=== PATIENT | male | born 1970 | race Caucasian/White ===

== ENCOUNTER 2017-07-19 19:36 | Inpatient (IN) | payer OTHER ==
[~2017-07-19] VITALS: Ht 175.3 cm; Wt 78.2 kg
--- NOTE | 2017-07-19 20:39 | NUR ---
pt biba to room for c/o abd pain. Pt A&Ox1 which is baseline per facility. Pt initially had c/o abd pain and then general pain. Pt unclear in complaints. Dr. Bravo at bedside.
[2017-07-19] MEDS ORDERED: IV NORMAL SALINE 1000 ML BAG IV ONE (20:45)
[2017-07-19 21:02] LABS: BASOPHILS % (AUTO) 0.4 % (0.0-2.0); EOSINOPHILS # (AUTO) 0.2 K/uL (0.0-0.7); EOSINOPHILS % (AUTO) 3.5 % (0.0-7.0); HEMATOCRIT 38.8 % (40-50); HEMOGLOBIN 12.7 G/DL (14.0-18.0); LYMPHOCYTES # (AUTO) 1.5 K/UL (0.8-4.8); LYMPHOCYTES % (AUTO) 32.4 % (20.5-51.5); MEAN CORPUSCULAR HGB CONC 33 g/dL (32.0-37.0); MEAN CORPUSCULAR VOLUME 88.6 FL (82.0-92.0); MONOCYTES # (AUTO) 0.4 K/UL (0.1-1.30); MONOCYTES % (AUTO) 7.7 % (0.0-11.0); NEUTROPHILS # (AUTO) 2.7 K/UL (1.8-8.9); PLATELET COUNT (AUTO) 183 K/UL (150-450); RED BLOOD CELL COUNT(AUTO) 4.38 MIL/UL (4.7-6.1); WHITE BLOOD COUNT (AUTO) 4.8 K/UL (4.0-11.2)
[2017-07-19 21:13] LABS: BILIRUBIN,DIRECT 0.1 mg/dL (0.0-0.2); BILIRUBIN,TOTAL 0.3 mg/dL (0.2-1.0); CREATININE 0.9 mg/dL (0.6-1.3); POTASSIUM 4.2 mmol/L (3.5-5.1); TOTAL PROTEIN, SERUM 7.3 g/dL (6.4-8.2)
--- NOTE | 2017-07-19 21:33 | NUR ---
Call placed to [facility] Nephrology, Dr. PEREZ will be paged.
[2017-07-19 21:42] LABS: *BILIRUBIN,URIN NEGATIVE (NEGATIVE); *BLOOD, URINE NEGATIVE (NEGATIVE); *CLARITY,URINE CLEAR (CLEAR); *COLOR,URINE YELLOW (YELLOW); *KETONES,URINE NEGATIVE (NEGATIVE); *PROTEIN,URINE NEGATIVE (NEGATIVE); *UROBILINOGEN,URINE 0.2 E.U./dl (NORMAL); LEUKOCYTE ESTERASE ,URINE NEGATIVE (NEGATIVE); NITRITE, URINE NEGATIVE (NEGATIVE); PH,URINE 5.5 (5.0-8.0); UGLUCOSE NEGATIVE (NEGATIVE)
[2017-07-19] MEDS ORDERED: ACET325T53 PO (21:44)
[2017-07-19] MEDS ORDERED: CYAN10009 PO (21:44)
[2017-07-19] MEDS ORDERED: RISP3TAB14 PO (21:44)
[2017-07-19] MEDS ORDERED: VENL75CA56 PO (21:44)
[2017-07-19] MEDS ORDERED: SENN-167 PO (21:44)
[2017-07-19] MEDS ORDERED: IBUP-1953 PO (21:44)
[2017-07-19] MEDS ORDERED: LORA1TAB PO (21:44)
[2017-07-19] MEDS ORDERED: THIA100T13 PO (21:44)
[2017-07-19] MEDS ORDERED: FOLI1TAB16 PO (21:44)
--- NOTE | 2017-07-19 21:46 | NUR ---
Report called to [facility]. Preparing to transfer pt to the floor
[2017-07-19 21:48] LABS: MUCUS,URINE MANY /LPF (0-FEW); WBC,URINE 0-3 /HPF (0-3)
[2017-07-19 22:40] VITALS: BP 132/76
--- NOTE | 2017-07-19 22:40 | NUR ---
RECEIVED PATIENT FROM ED VIA [employer]. PATIENT IS ALERT TO SELF ONLY. POOR HISTORIAN. WAS ABLE TO ESTABLISH CODE STATUS. IV HL ON THE LEFT AC PATENT AND INTACT. BELONGINGS LIST COMPLETED. PATIENT IS ABLE TO WALK BUT UNSTEADY. SAFETY INITIATED. SKIN ASSESSMENT DONE. NOTED SACRAL REDNESS AND OLD WOUND MARKINGS. INSTRUCTED TO USE THE CALL LIGHT WHEN IN NEED OF HELP. HE WAS ABLE TO RETURN DEMONSTRATION. FALL PRECAUTIONS. BED ALARM TURNED ON. WAITING ON ORDERS. WILL CONTINUE TO MONITOR.
[2017-07-20 04:00] VITALS: BP 103/67
--- NOTE | 2017-07-20 05:43 | NUR ---
no changes t/o shift. no acute distress noted. patient slept well t/o the night. no c/o pain. patient ambulated to the restroom once. safety and comfort measures maintained t/o shift. all needs met.
[2017-07-20 07:45] LABS: POTASSIUM 3.9 mmol/L (3.5-5.1)
[2017-07-20] MEDS ORDERED: IBUPROFEN 400 MG TABLET PO PRN (08:15)
[2017-07-20] MEDS ORDERED: ACETAMINOPHEN 325 MG TABLET PO PRN (08:15)
[2017-07-20] MEDS: CYANOCOBALAMIN 1,000 MCG TABLET PO SCH (08:37)
[2017-07-20] MEDS: FOLIC ACID 1 MG TABLET PO SCH (08:37)
[2017-07-20] MEDS: THIAMINE HCL 100 MG TABLET PO SCH (08:38)
[2017-07-20] MEDS: SENNOSIDES 1 TABLET PO SCH (08:38)
[2017-07-20 08:47] LABS: BASOPHILS % (AUTO) 0.6 % (0.0-2.0); EOSINOPHILS # (AUTO) 0.2 K/uL (0.0-0.7); EOSINOPHILS % (AUTO) 3.9 % (0.0-7.0); HEMOGLOBIN 12.3 g/dL (12.5-16.3); LYMPHOCYTES # (AUTO) 1.4 K/uL (20.0-40.0); LYMPHOCYTES % (AUTO) 31.1 % (20.5-51.5); MEAN CORPUSCULAR HEMOGLOBIN 30.2 uug (23.8-33.4); MEAN CORPUSCULAR HGB CONC 34 g/dL (32.5-36.3); MEAN CORPUSCULAR VOLUME 88.5 fL (73.0-96.2); MONOCYTES # (AUTO) 0.4 K/uL (2.0-10.0); MONOCYTES % (AUTO) 9.5 % (0.0-11.0); NEUTROPHILS # (AUTO) 2.5 K/uL (1.8-8.9); NEUTROPHILS % (AUTO) 54.9 % (38.5-71.5); PLATELET COUNT (AUTO) 148 K/uL (152-348); RED BLOOD CELL COUNT(AUTO) 4.07 MIL/uL (4.06-5.63); WHITE BLOOD COUNT (AUTO) 4.5 K/uL (3.6-10.2)
--- NOTE | 2017-07-20 08:51 | NUR ---
DR GUTHRIE HERE SEEN AND EXAMINED PATIENT WITH NEW ORDERS AND NOTED.
[2017-07-20] MEDS ORDERED: THIAMINE HCL 100 MG TABLET PO SCH (09:00)
[2017-07-20 11:03] VITALS: BP 101/55
[2017-07-20] MEDS: POTASSIUM CHLORIDE 10 MEQ in IV 1/2NS 1000 ML 1,000 ML IV PRN (11:16)
[2017-07-20] MEDS: VENLAFAXINE XR 75 MG CAP.SR.24H PO SCH (12:58)
[2017-07-20 15:38] VITALS: BP 101/62
[2017-07-20] MEDS: LORAZEPAM 1 MG TABLET PO SCH ×2 (16:21→21:00)
--- NOTE | 2017-07-20 16:30 | NUR ---
PATIENT IS GETTING AGITATED AND RESTLESS DUE ATIVAN GIVEN TO HIM ORALLY AT THIS TIME AND PATIENT HAS NO PRN MEDICATIONS TO CALM HIM DOWN SO I CALLED DR SCOTT AND LEFT HIM A MESSAGE SPOKE WITH FRANCE TO CALL US BACK WITH AN ORDER
--- NOTE | 2017-07-20 17:26 | NUR ---
MD HAS NOT CALLED BACK BUT PATIENT IS CALMER WITH THE ATIVAN GIVEN HE IS EATING HIS DINNER RESPONDED WHEN ASKED IF HE WANTED SOMETHING TO DRINK AND HE STATED MILK.GIVEN AND PATIENT TOLERATED WELL.
--- NOTE | 2017-07-20 19:30 | NUR ---
Pt in room alert awake and oriented to self and . No s/s of acute distress or increased weakness. Pt encouraged to use call light for assistance. Side rails up. HOB elevated 20 degrees. Denies any pain and unable to state discomfort. Continue to monitor. V/s are WNL.
[2017-07-20 20:00] VITALS: BP 111/75
--- NOTE | 2017-07-20 21:00 | NUR ---
Pt given unscheduled Ativan 1 mg PO due to previous missed doses. Noted and carried out.
[2017-07-21] MEDS: POTASSIUM CHLORIDE 10 MEQ in IV 1/2NS 1000 ML 1,000 ML IV PRN ×2 (00:45→19:41)
[2017-07-21] MEDS: PANTOPRAZOLE SODIUM 40 MG TABLET.DR PO SCH (06:00)
[2017-07-21] MEDS: CYANOCOBALAMIN 1,000 MCG TABLET PO SCH (09:00)
[2017-07-21] MEDS: SENNOSIDES 1 TABLET PO SCH (09:00)
[2017-07-21] MEDS: LORAZEPAM 1 MG TABLET PO SCH ×3 (09:00→17:15)
[2017-07-21] MEDS: FOLIC ACID 1 MG TABLET PO SCH (09:00)
[2017-07-21] MEDS: VENLAFAXINE XR 75 MG CAP.SR.24H PO SCH (09:00)
[2017-07-21] MEDS: THIAMINE HCL 100 MG TABLET PO SCH (09:00)
[2017-07-21 11:18] VITALS: BP 100/72
--- NOTE | 2017-07-21 13:40 | NUR ---
SBAR report received at bedside this morning while computer systems were down. Board updated. Pt assessed, no acute distress noted at this time, Pt. denies any c/o pain. Pt compliant with all routine morning medication administration. All personal items and call light within reach. Pt teaching to remind Pt to utilize call light for any ambulation needs such as BRP, Pt forgetful about using diaper. Will continue to monitor.
[2017-07-21 15:34] VITALS: BP 120/76
--- NOTE | 2017-07-21 18:50 | NUR ---
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 Pt sitting comfortably up in bed. No anxiety or pain noted at this time. All comfort and safety measures in place. Call light within reach and Pt reminded to use for toileting assistance. V/S remained stable throughout this shift. Will continue to monitor and endorse to mold shifter.
--- NOTE | 2017-07-21 19:30 | NUR ---
Pt in contact isolation d/t MRSA nares. No acute distress. Able to eat and drink without difficulty. No increased weakness at this time. Advised pt to request for help when needed. Denies any pain at this time. Continue to monitor. Pt to start on ointment for nares.
[2017-07-21 20:00] VITALS: BP 133/95
[2017-07-21] MEDS: MUPIROCIN 2% OINT 22 GM TUBE NS SCH (20:00)
--- NOTE | 2017-07-22 01:00 | NUR ---
Pt asleep in room with no increased weakness present. No acute distress or c/o abdominal pain. Continue to monitor.
[2017-07-22 05:32] VITALS: BP 99/70
--- NOTE | 2017-07-22 06:00 | NUR ---
Pt asleep in room. No c/o abdominal pain. No increased confusion or agitation noted. Pt made aware of temporary NPO diet for upcoming ultrasound. BP 99/70. Pt repositioned and voided 2x since 000. Continue to monitor.
[2017-07-22] MEDS: PANTOPRAZOLE SODIUM 40 MG TABLET.DR PO SCH (07:00)
[2017-07-22 07:36] LABS: BILIRUBIN,TOTAL 0.3 mg/dL (0.2-1.0); MAGNESIUM 1.8 mg/dL (1.8-2.4); PHOSPHOROUS 4.4 mg/dL (2.5-4.9); POTASSIUM 4.2 mmol/L (3.5-5.1); TOTAL PROTEIN, SERUM 7.4 g/dL (6.4-8.2)
[2017-07-22 08:08] LABS: BASOPHILS % (AUTO) 0.6 % (0.0-2.0); EOSINOPHILS # (AUTO) 0.2 K/uL (0.0-0.7); LYMPHOCYTES # (AUTO) 1.7 K/uL (20.0-40.0); MONOCYTES # (AUTO) 0.5 K/uL (2.0-10.0); PLATELET COUNT (AUTO) 150 K/uL (152-348)
[2017-07-22 08:14] LABS: EOSINOPHILS % (AUTO) 3.9 % (0.0-7.0); LYMPHOCYTES % (AUTO) 30.8 % (20.5-51.5); MEAN CORPUSCULAR HEMOGLOBIN 30.9 uug (23.8-33.4); MEAN CORPUSCULAR HGB CONC 35 g/dL (32.5-36.3); MEAN CORPUSCULAR VOLUME 87.3 fL (73.0-96.2); NEUTROPHILS % (AUTO) 54.7 % (38.5-71.5); RED BLOOD CELL COUNT(AUTO) 4.62 MIL/uL (4.06-5.63); WHITE BLOOD COUNT (AUTO) 5.4 K/uL (3.6-10.2)
[2017-07-22 08:16] LABS: HEMATOCRIT 40.4 % (36.7-47.1); HEMOGLOBIN 14.3 g/dL (12.5-16.3)
[2017-07-22] MEDS: MUPIROCIN 2% OINT 22 GM TUBE NS SCH ×2 (08:56→20:10)
[2017-07-22] MEDS: LORAZEPAM 1 MG TABLET PO SCH ×4 (09:00→16:42)
--- NOTE | 2017-07-22 09:24 | NUR ---
RECEIVED PATIENT ASLEEP WITH ONGOING IVF OF .45 NS + KCL 10 MEQ, INFUSING WELL OVER LEFT AC. NOT IN APPARENT DISTRESS. WAKES UP TO TOUCH AND NAME. FOR ABDOMINAL ULTRASOUND TODAY. MAINTAIN ON NPO UNTIL COMPLETION OF TEST.
[2017-07-22] MEDS: POTASSIUM CHLORIDE 10 MEQ in IV 1/2NS 1000 ML 1,000 ML IV PRN ×2 (09:37→23:49)
--- NOTE | 2017-07-22 10:32 | NUR ---
With family at bedside. Tolerated medications well. Still with periods of confusion. Oriented accordingly. Addendum: 07/22/17 at 1333 by GARLAND QUEZADA RN Charted for wrong patient.
[2017-07-22 11:07] VITALS: BP 95/54
--- NOTE | 2017-07-22 12:00 | NUR ---
Abdominal ultrasound done at bedside. Morning medications given. Tolerated well. Urine specimen collected and sent to lab.
[2017-07-22] MEDS: VENLAFAXINE XR 75 MG CAP.SR.24H PO SCH (12:59)
[2017-07-22] MEDS: FOLIC ACID 1 MG TABLET PO SCH (13:00)
[2017-07-22] MEDS: SENNOSIDES 1 TABLET PO SCH (13:00)
[2017-07-22] MEDS: THIAMINE HCL 100 MG TABLET PO SCH (13:00)
[2017-07-22] MEDS: CYANOCOBALAMIN 1,000 MCG TABLET PO SCH (13:01)
[2017-07-22 15:07] VITALS: BP 102/64
[2017-07-22 20:00] VITALS: BP 90/46
--- NOTE | 2017-07-22 20:28 | NUR ---
NSG:Received patient laying in bed.smiling.no c/o pain or discomfort this time. Pt in contact isolation d/t MRSA nares. No acute distress. Able to eat and drink without difficulty. No increased weakness at this time. instructed to call nurse for help when needed via call light. Denies any pain at this time. Continue to monitor. call light w/in reach.
[2017-07-22 21:00] VITALS: BP 99/56
--- NOTE | 2017-07-23 03:30 | NUR ---
nsg: Pt asleep in room with no weakness present. No acute distress or c/o abdominal pain. Continue to monitoring for safety.
[2017-07-23 05:04] VITALS: BP 106/60
[2017-07-23] MEDS: PANTOPRAZOLE SODIUM 40 MG TABLET.DR PO SCH (06:24)
--- NOTE | 2017-07-23 06:50 | NUR ---
NSG: Pt slept well through the night in room. No c/o abdominal pain. No increased confusion or agitation noted. assisted with adl's. Pt repositioned and voided yellow urine x3 through the night . ivf running well. Continue to monitor.
[2017-07-23] MEDS: MUPIROCIN 2% OINT 22 GM TUBE NS SCH (09:00)
[2017-07-23] MEDS: SENNOSIDES 1 TABLET PO SCH (09:40)
[2017-07-23] MEDS: FOLIC ACID 1 MG TABLET PO SCH (09:40)
[2017-07-23] MEDS: CYANOCOBALAMIN 1,000 MCG TABLET PO SCH (09:40)
[2017-07-23] MEDS: THIAMINE HCL 100 MG TABLET PO SCH (09:40)
[2017-07-23] MEDS: LORAZEPAM 1 MG TABLET PO SCH ×2 (09:40→15:19)
[2017-07-23] MEDS: VENLAFAXINE XR 75 MG CAP.SR.24H PO SCH (09:40)
[2017-07-23 11:02] VITALS: BP 97/54
[2017-07-23 15:03] VITALS: BP 113/68
--- NOTE | 2017-07-23 17:15 | NUR ---
IV D/C'D HOME INSTRUCTIONS REVIEWED SEVERAL TIMES. PT. STABLE AND HAPPY TO GO HOME.
== END 2017-07-23 17:15 | DRG 641 ==
LOC: ER 19:36 → DOU 22:23 → MED 23:08
PROVIDERS: ADMIT Internal Medicine Nephrology; ATTEND Internal Medicine
DX: E86.9 Volume depletion, unspecified (principal); F20.9 Schizophrenia, unspecified; F03.90 Unspecified dementia, unspecified severity, without behavioral disturbance, psychotic disturbance, mood disturbance, and anxiety; F17.210 Nicotine dependence, cigarettes, uncomplicated; R53.1 Weakness; Z79.1 Long term (current) use of non-steroidal anti-inflammatories (NSAID); Z79.899 Other long term (current) drug therapy
CPT/HCPCS: 36415; 76700; 83690; 83735; 84100; 85025; J3480; J3490; J7030

== ENCOUNTER 2017-07-24 17:44 | Inpatient (IN) | payer OTHER ==
[~2017-07-24] VITALS: Ht 177.8 cm; Wt 73.5 kg
[~2017-07-24 17:44] MED LIST: ACET325T53 PO; CYAN10009 PO; FOLI1TAB16 PO; IBUP-1953 PO; LORA1TAB PO; RISP3TAB14 PO; SENN-167 PO; THIA100T13 PO; VENL75CA56 PO
--- NOTE | 2017-07-24 19:30 | NUR ---
Ambulated to bathroom,voided freely with difficulty. Has steady gait. Urine specimen was sent to lab.
[2017-07-24] MEDS ORDERED: IV NORMAL SALINE 1000 ML BAG IV ONE ×2 (19:45→21:30)
--- NOTE | 2017-07-24 19:55 | NUR ---
Dr. Nash at bedside for pt evaluation.
[2017-07-24 20:05] LABS: BASOPHILS % (AUTO) 0.5 % (0.0-2.0); EOSINOPHILS # (AUTO) 0.2 K/uL (0.0-0.7); EOSINOPHILS % (AUTO) 3.1 % (0.0-7.0); HEMOGLOBIN 13.6 G/DL (14.0-18.0); LYMPHOCYTES # (AUTO) 1.2 K/UL (0.8-4.8); MEAN CORPUSCULAR HEMOGLOBIN 29.4 UUG (27.0-31.0); MEAN CORPUSCULAR HGB CONC 33 g/dL (32.0-37.0); MEAN CORPUSCULAR VOLUME 88.5 FL (82.0-92.0); MONOCYTES # (AUTO) 0.4 K/UL (0.1-1.30); MONOCYTES % (AUTO) 6.1 % (0.0-11.0); NEUTROPHILS % (AUTO) 70.3 % (38.5-71.5); PLATELET COUNT (AUTO) 174 K/UL (150-450); RED BLOOD CELL COUNT(AUTO) 4.64 MIL/UL (4.7-6.1); WHITE BLOOD COUNT (AUTO) 5.8 K/UL (4.0-11.2)
[2017-07-24 20:05] LABS: *BILIRUBIN,URIN NEGATIVE (NEGATIVE); *BLOOD, URINE NEGATIVE (NEGATIVE); *CLARITY,URINE SLIGHTLY CLOUDY (CLEAR); *COLOR,URINE YELLOW (YELLOW); *KETONES,URINE NEGATIVE (NEGATIVE); *PROTEIN,URINE 1+ (NEGATIVE); *UROBILINOGEN,URINE 0.2 E.U./dl (NORMAL); LEUKOCYTE ESTERASE ,URINE NEGATIVE (NEGATIVE); NITRITE, URINE NEGATIVE (NEGATIVE); PH,URINE 5.5 (5.0-8.0); UGLUCOSE NEGATIVE (NEGATIVE)
[2017-07-24 20:14] LABS: ALANINE AMINOTRANSFERASE 15 U/L (16-63); ALKALINE PHOSPHATASE 73 U/L (50-136); ASPARTATE AMINOTRANSFERASE 18 U/L (15-37); BILIRUBIN,DIRECT 0.1 mg/dL (0.0-0.2); BILIRUBIN,TOTAL 0.2 mg/dL (0.2-1.0); CARBON DIOXIDE 30 mmol/L (21-32); CHLORIDE 104 mmol/L (98-107); CREATININE 1.1 mg/dL (0.6-1.3); GLUCOSE 113 mg/dL (74-106); POTASSIUM 4.3 mmol/L (3.5-5.1); TOTAL PROTEIN, SERUM 7.5 g/dL (6.4-8.2); UREA NITROGEN, BLOOD 20 mg/dL (7-18)
--- NOTE | 2017-07-24 20:20 | NUR ---
Sanches cath inserted by Justino Flower LVN. Procedure well tolerated.
[2017-07-24 20:41] LABS: BACTERIA,URINE RARE /HPF (NONE SEEN); RBC,URINE 0-3 /HPF (0-3); SQUAMOUS EPITHELIAL CELL,UR FEW /HPF (NONE SEEN)
--- NOTE | 2017-07-24 21:25 | NUR ---
Call placed to [facility] Nephrology, Dr. Zarco will be paged.
[2017-07-24] MEDS ORDERED: GENTAMICIN SULFATE INJ 80 MG in IV DEXTROSE 5% 100 ML IV ONE (21:30)
[2017-07-24] MEDS ORDERED: CEFTAZIDIME 1 G in IV DEXTROSE 5% 50 ML IV ONE (21:30)
--- NOTE | 2017-07-24 22:32 | NUR ---
REPAGED ROLDAN JACKSON REQUESTED BY DR IBARRA
[2017-07-24] MEDS ORDERED: CEFTAZIDIME 1 G VIAL ONE (22:34)
[2017-07-24] MEDS ORDERED: GENTAMICIN SULFATE 80 MG/2 ML VIAL ONE (22:34)
--- NOTE | 2017-07-24 23:16 | NUR ---
TRANSFERED TO 2ND FLOOR VIA [facility]
--- NOTE | 2017-07-24 23:20 | NUR ---
PT RECEIVED FROM ED, VIA [employer]. A/OX1. CONFUSED, BUT ABLE TO MAKE NEEDS KNOWN. V/S STABLE. IN NO ACUTE DISTRESS. NO C/O PAIN AT THIS TIME. IV BOLUS INFUSING. DURON INTACT AND PATENT. ON RA, TOLERATING WELL. SAFETY MEASURES IMPLEMENTED. CALL LIGHT WITHIN REACH.
[2017-07-24] MEDS ORDERED: ONDANSETRON 4 MG/2 ML VIAL IV PRN (23:30)
[2017-07-25] VITALS: BP 122/80
[2017-07-25] MEDS: IV NS 1000 ML 1,000 ML IV PRN ×3 (01:30→21:44)
--- NOTE | 2017-07-25 01:30 | NUR ---
PT FLUID BOLUS COMPLETED. 1300 CC OF NS COMPLETED HERE ON MED SURG FLOOR. PT IN STABLE CONDITION. WILL CONT TO MONITOR.
[2017-07-25 06:00] VITALS: BP 123/75
--- NOTE | 2017-07-25 06:30 | NUR ---
END OF SHIFT NOTES. PT SLEPT WELL THROUGHOUT SHIFT. IN STABLE CONDITION. IVF INFUSING. DURON INTACT/PATENT. ON RA, TOLERATING WELL. ALL NEEDS ATTENDED. SAFETY MAINTAINED. CALL LIGHT WITHIN REACH.
[2017-07-25 06:54] LABS: POTASSIUM 3.8 mmol/L (3.5-5.1)
[2017-07-25 07:03] LABS: BASOPHILS % (AUTO) 0.6 % (0.0-2.0); EOSINOPHILS # (AUTO) 0.2 K/uL (0.0-0.7); EOSINOPHILS % (AUTO) 5.2 % (0.0-7.0); HEMATOCRIT 35.4 % (36.7-47.1); HEMOGLOBIN 12.2 g/dL (12.5-16.3); LYMPHOCYTES # (AUTO) 1.6 K/uL (20.0-40.0); LYMPHOCYTES % (AUTO) 38.5 % (20.5-51.5); MEAN CORPUSCULAR HEMOGLOBIN 30.3 uug (23.8-33.4); MEAN CORPUSCULAR HGB CONC 35 g/dL (32.5-36.3); MONOCYTES # (AUTO) 0.4 K/uL (2.0-10.0); MONOCYTES % (AUTO) 9.8 % (0.0-11.0); NEUTROPHILS # (AUTO) 1.9 K/uL (1.8-8.9); NEUTROPHILS % (AUTO) 45.9 % (38.5-71.5); PLATELET COUNT (AUTO) 124 K/uL (152-348); RED BLOOD CELL COUNT(AUTO) 4.02 MIL/uL (4.06-5.63); WHITE BLOOD COUNT (AUTO) 4.2 K/uL (3.6-10.2)
[2017-07-25] MEDS ORDERED: ACETAMINOPHEN 325 MG TABLET PO PRN (07:15)
[2017-07-25] MEDS ORDERED: IBUPROFEN 400 MG TABLET PO PRN (07:15)
[2017-07-25] MEDS: THIAMINE HCL 100 MG TABLET PO SCH (08:24)
[2017-07-25] MEDS: LORAZEPAM 1 MG TABLET PO SCH ×3 (08:24→17:43)
[2017-07-25] MEDS: CYANOCOBALAMIN 1,000 MCG TABLET PO SCH (08:24)
[2017-07-25] MEDS: SENNOSIDES 1 TABLET PO SCH (08:24)
[2017-07-25] MEDS: FOLIC ACID 1 MG TABLET PO SCH (08:24)
[2017-07-25] MEDS: risperiDONE 2 MG TABLET PO SCH ×2 (08:24→17:43)
[2017-07-25] MEDS: VENLAFAXINE XR 75 MG CAP.SR.24H PO SCH (11:04)
[2017-07-25] MEDS: CEFTRIAXONE 1 G in IV DEXTROSE 5% 50 ML IV SCH (11:04)
[2017-07-25 11:40] VITALS: BP 100/58
[2017-07-25 16:11] VITALS: BP 126/82
--- NOTE | 2017-07-25 17:55 | NUR ---
pt non compliant with evening medications, did not take metformin or seroquel, pt only took diabeta. Addendum: 07/25/17 at 1757 by SHIVA WARD RN entered on wrong patient. this pt compliant with all medications throughout shift
--- NOTE | 2017-07-25 19:30 | NUR ---
received to care, lying in bed, arousable, but minimally interactive, when engaged. IVF continue to infuse, to RFA. vital signs remain stable. fuentes catheter remains intact, and patent. pt is now resting, with his eyes closed. call light in reach. no distress noted. will continue to monitor closely.
[2017-07-25 20:00] VITALS: BP 126/80
--- NOTE | 2017-07-25 23:30 | NUR ---
pt was awake, around 2300. snack was given, and he went back to sleep.
[2017-07-26] MEDS: ACETAMINOPHEN 325 MG TABLET PO PRN ×2 (00:31→20:37)
[2017-07-26 05:01] VITALS: BP 101/65
--- NOTE | 2017-07-26 05:30 | NUR ---
pt slept well, throughout he night, with a few episodes of being awake. as of 529, he continues to sleep. fuentes catheter remains patent, draining adequate amounts of clear and stella urine. no distress noted.
[2017-07-26] MEDS: IV NS 1000 ML 1,000 ML IV PRN (06:57)
[2017-07-26] MEDS: CEFTRIAXONE 1 G in IV DEXTROSE 5% 50 ML IV SCH (08:56)
[2017-07-26] MEDS: LORAZEPAM 1 MG TABLET PO SCH ×3 (08:57→16:36)
[2017-07-26] MEDS: CYANOCOBALAMIN 1,000 MCG TABLET PO SCH (08:57)
[2017-07-26] MEDS: SENNOSIDES 1 TABLET PO SCH (08:57)
[2017-07-26] MEDS: FOLIC ACID 1 MG TABLET PO SCH (08:57)
[2017-07-26] MEDS: risperiDONE 2 MG TABLET PO SCH ×2 (08:57→16:36)
[2017-07-26] MEDS: THIAMINE HCL 100 MG TABLET PO SCH (08:57)
[2017-07-26] MEDS: VENLAFAXINE XR 75 MG CAP.SR.24H PO SCH (08:58)
[2017-07-26 11:53] VITALS: BP 100/65
[2017-07-26 15:45] VITALS: BP 109/74
--- NOTE | 2017-07-26 18:37 | NUR ---
PT AWAKE IN BED, WATCHING TV. NO CHANGE NOTED THROUGHOUT SHIFT, ALL SAFETY AND COMFORT MEASURES MAINTAINED. CALL LIGHT IN REACH
[2017-07-26 20:00] VITALS: BP 105/62
--- NOTE | 2017-07-26 20:00 | NUR ---
RECEIVED PATIENT AWAKE IN BED, WATCHING TV. PATIENT IS A/O X3. DENIES PAIN OR DISCOMFORT. NO RESP. DISTRESS NOTED. IVF INFUSING WELL TO RIGHT FA #20 GAUGE. F/C INTACT AND PATENT, DRAINING CLEAR, YELLOW URINE. VS WNL. CALL LIGHT IN REACH. ALL NEEDS ATTENDED. WILL CONTINUE TO MONITOR.
[2017-07-27] MEDS: IV NS 1000 ML 1,000 ML IV PRN ×2 (03:37→14:06)
--- NOTE | 2017-07-27 05:47 | NUR ---
PATIENT ASLEEP IN BED. EASILY AROUSABLE. SLEPT WELL THROUGHOUT THE NIGHT. IVF INFUSING WELL. CALL LIGHT IN REACH. ALL NEEDS ATTENDED. WILL CONTINUE TO MONITOR.
[2017-07-27 06:24] VITALS: BP 136/83
[2017-07-27] MEDS: CEFTRIAXONE 1 G in IV DEXTROSE 5% 50 ML IV SCH (08:42)
[2017-07-27] MEDS: THIAMINE HCL 100 MG TABLET PO SCH (08:42)
[2017-07-27] MEDS: CYANOCOBALAMIN 1,000 MCG TABLET PO SCH (08:43)
[2017-07-27] MEDS: VENLAFAXINE XR 75 MG CAP.SR.24H PO SCH (08:43)
[2017-07-27] MEDS: risperiDONE 2 MG TABLET PO SCH ×2 (08:43→16:59)
[2017-07-27] MEDS: LORAZEPAM 1 MG TABLET PO SCH ×3 (08:43→16:59)
[2017-07-27] MEDS: SENNOSIDES 1 TABLET PO SCH (08:43)
[2017-07-27] MEDS: FOLIC ACID 1 MG TABLET PO SCH (08:43)
[2017-07-27 11:55] VITALS: BP 89/58
--- NOTE | 2017-07-27 13:37 | NUR ---
PT BP 112/78. ATIVAN GIVEN
[2017-07-27 15:39] VITALS: BP 119/80
--- NOTE | 2017-07-27 20:00 | NUR ---
RECEIVED PATIENT AWAKE IN BED. A/O X3. IVF INFUSING WELL TO RIGHT FA #20 GAUGE. F/C INTACT AND DRAINING WELL TO GRAVITY. PATIENT DENIES ANY PAIN OR DISCOMFORT. NO RESP. DISTRESS NOTED. VS WNL. BED ALARM ON. CALL LIGHT IN REACH, ALL NEEDS ATTENDED. WILL CONTINUE TO MONITOR AND ASSESS.
[2017-07-27 20:14] VITALS: BP 110/78
[2017-07-27] MEDS ORDERED: TAMSULOSIN HCL 0.4 MG CAP.SR.24H PO SCH (21:00)
[2017-07-28] MEDS: IV NS 1000 ML 1,000 ML IV PRN (00:44)
[2017-07-28 04:31] VITALS: BP 134/85
--- NOTE | 2017-07-28 05:50 | NUR ---
PATIENT AWAKE IN BED. DENIES PAIN. NO RESP. DISTRESS NOTED. VS WNL. IVF INFUSING WELL. BED ALARM ON. CALL LIGHT IN REACH. ALL NEEDS ATTENDED, WILL CONTINUE TO MONITOR AND ASSESS.
[2017-07-28] MEDS ORDERED: FINA5TAB11 PO (07:56)
[2017-07-28] MEDS ORDERED: TAMS-3 PO (07:56)
[2017-07-28] MEDS ORDERED: risperiDONE 2 MG TABLET PO ONE (09:00)
[2017-07-28 11:05] VITALS: BP 114/75
--- NOTE | 2017-07-28 14:27 | NUR ---
0800. PATIENT AWAKE V.S.S. IN NO ACUTE RESPIRATORY DISTRESS. PATIENT SOMETIMES ACTS IF IN A CATATONIC STATE; NOT RESPONDING TO VERBAL STIMULII AT THAT TIME. AFTER 2-3 MINUTES RESPONDS AND REPLIED APPROPRIATELY. FEEDS SELF IF FOOD IS CUT UP AND SET UP FOR HIM. V.S.S. NO COMPLAINTS OF PAIN. BRITANY JAQUEZ R.N. 07-7P. 07/28/2017. [address] [place] [address]/[facility]. 1000. SITTING UP IN BED IN NO DISTRESS. WATCHING T.V. SILENT UNLESS SPOKEN TO. APPEARS COMFORTABLE. BRITANY JAQUEZ R.N. 07-7P. 07/28/2017. [address] [place] [address]/[facility]. 1200. NO CHANGE. MEAL CUT UP AND PATIENT EATING SLOWLY. BRITANY JAQUEZ R.N. 07-7P. 07/28/2017. [address] [place] [address]/[facility]. 1400. PATIENT SLEEPING. I.V. PATENT AND CONTINUES TO INFUSE 0.9 N/S AT 100ML/HR. BRITANY JAQUEZ R.N. 07-7P. 07/28/2017. [address] [place] [address]/[facility].
[2017-07-28 15:00] VITALS: BP 105/72
== END 2017-07-28 17:30 | DRG 872 ==
LOC: ER 17:45 → MED 23:11
PROVIDERS: ADMIT Internal Medicine Nephrology; ATTEND Internal Medicine
DX: A41.9 Sepsis, unspecified organism (principal); F20.2 Catatonic schizophrenia; N39.0 Urinary tract infection, site not specified; R33.9 Retention of urine, unspecified; R80.9 Proteinuria, unspecified; Z79.899 Other long term (current) drug therapy; F39 Unspecified mood [affective] disorder
CPT/HCPCS: 36415; 70030-TC; 71010; 76770; 83605; 84443; 85025; 85730; 87040; 87086; 93005; A4663; J0696; J0713; J1580; J7030; J7040; J7060

== ENCOUNTER 2017-09-20 12:56 | Emergency (ER) | payer OTHER ==
[~2017-09-20] VITALS: Ht 175.3 cm; Wt 72.6 kg
[~2017-09-20 12:56] MED LIST changes: +FINA5TAB11 PO; +TAMS-3 PO
[2017-09-20] MEDS ORDERED: [UNRECOGNIZED DRUG - CODE] PO (13:10)
[2017-09-20] MEDS ORDERED: THIA100T70 PO (13:10)
[2017-09-20] MEDS ORDERED: IV NORMAL SALINE 1000 ML BAG IV ONE (13:15)
[2017-09-20 13:21] LABS: *BILIRUBIN,URIN NEGATIVE (NEGATIVE); *BLOOD, URINE NEGATIVE (NEGATIVE); *CLARITY,URINE CLEAR (CLEAR); *COLOR,URINE LIGHT YELLOW (YELLOW); *KETONES,URINE NEGATIVE (NEGATIVE); *PROTEIN,URINE NEGATIVE (NEGATIVE); *UROBILINOGEN,URINE 0.2 E.U./dl (NORMAL); LEUKOCYTE ESTERASE ,URINE NEGATIVE (NEGATIVE); NITRITE, URINE NEGATIVE (NEGATIVE); PH,URINE 7.5 (5.0-8.0); UGLUCOSE NEGATIVE (NEGATIVE)
[2017-09-20 13:29] LABS: BACTERIA,URINE NONE SEEN /HPF (NONE SEEN); RBC,URINE 0-3 /HPF (0-3); SQUAMOUS EPITHELIAL CELL,UR FEW /HPF (NONE SEEN); WBC,URINE 0-3 /HPF (0-3)
[2017-09-20 13:39] LABS: BASOPHILS % (AUTO) 0.5 % (0.0-2.0); EOSINOPHILS # (AUTO) 0.2 K/uL (0.0-0.7); EOSINOPHILS % (AUTO) 3.1 % (0.0-7.0); HEMATOCRIT 35.3 % (36.7-47.1); HEMOGLOBIN 12.1 g/dL (12.5-16.3); LYMPHOCYTES # (AUTO) 1.5 K/uL (20.0-40.0); LYMPHOCYTES % (AUTO) 27.8 % (20.5-51.5); MEAN CORPUSCULAR HEMOGLOBIN 29.7 uug (23.8-33.4); MEAN CORPUSCULAR HGB CONC 34 g/dL (32.5-36.3); MEAN CORPUSCULAR VOLUME 86.7 fL (73.0-96.2); MONOCYTES # (AUTO) 0.5 K/uL (2.0-10.0); MONOCYTES % (AUTO) 9.5 % (0.0-11.0); NEUTROPHILS # (AUTO) 3.1 K/uL (1.8-8.9); NEUTROPHILS % (AUTO) 59.1 % (38.5-71.5); PLATELET COUNT (AUTO) 152 K/uL (152-348); RED BLOOD CELL COUNT(AUTO) 4.07 MIL/uL (4.06-5.63); WHITE BLOOD COUNT (AUTO) 5.2 K/uL (3.6-10.2)
[2017-09-20 13:49] LABS: CREATININE 0.8 mg/dL (0.6-1.3); POTASSIUM 4.3 mmol/L (3.5-5.1)
[2017-09-20 13:55] LABS: BILIRUBIN,DIRECT 0.1 mg/dL (0.0-0.2); BILIRUBIN,TOTAL 0.3 mg/dL (0.2-1.0); TOTAL PROTEIN, SERUM 7.5 g/dL (6.4-8.2)
--- NOTE | 2017-09-20 14:35 | NUR ---
REILLY SPOKE TO PT'S PMD, DR MEANS. PER PMD PT WILL GO BACK TO [facility].
--- NOTE | 2017-09-20 14:41 | NUR ---
PLACED A CALL TO [facility] FOR PT TRANSFER. ETA 1 1/2 HOURS. PT IS RESTING IN BED W/ BOTH EYES CLOSED.
--- NOTE | 2017-09-20 16:29 | NUR ---
Patient is resting comfortably in bed with eyes closed
--- NOTE | 2017-09-20 17:10 | NUR ---
REPORT PROVIDED FOR EMT'S. PT LEFT ER IN STABLES CONDITION VIA [facility]. ALL BELONGINGS SENT W/ PT.
[2017-09-20 17:13] VITALS: BP 120/82
== END 2017-09-20 17:27 | disposition home or self-care (01) ==
LOC: ER 12:58
DX: Z00.00 Encounter for general adult medical examination without abnormal findings (principal); R00.1 Bradycardia, unspecified
CPT/HCPCS: 36415; 70030-TC; 71010; 83605; 83690; 85025; 85730; 87040; 87086; 93005; A4663; C1758; J7030

== ENCOUNTER 2018-01-16 17:27 | Emergency (ER) | payer OTHER ==
[~2018-01-16] VITALS: Ht 175.3 cm; Wt 72.6 kg
[~2018-01-16 17:27] MED LIST changes: -ACET325T53 PO; -CYAN10009 PO; +THIA100T70 PO; +[UNRECOGNIZED DRUG - CODE] PO
[2018-01-16] MEDS ORDERED: [UNRECOGNIZED DRUG - CODE] PO (17:50)
[2018-01-16 18:10] LABS: BASOPHILS % (AUTO) 0.7 % (0.0-2.0); EOSINOPHILS # (AUTO) 0.2 K/uL (0.0-0.7); EOSINOPHILS % (AUTO) 2.8 % (0.0-7.0); HEMOGLOBIN 12.8 g/dL (12.5-16.3); LYMPHOCYTES # (AUTO) 1.8 K/uL (20.0-40.0); LYMPHOCYTES % (AUTO) 33.9 % (20.5-51.5); MEAN CORPUSCULAR HEMOGLOBIN 29.9 uug (23.8-33.4); MEAN CORPUSCULAR HGB CONC 35 g/dL (32.5-36.3); MEAN CORPUSCULAR VOLUME 86.3 fL (73.0-96.2); MONOCYTES # (AUTO) 0.4 K/uL (2.0-10.0); MONOCYTES % (AUTO) 7.3 % (0.0-11.0); NEUTROPHILS # (AUTO) 2.9 K/uL (1.8-8.9); NEUTROPHILS % (AUTO) 55.3 % (38.5-71.5); PLATELET COUNT (AUTO) 151 K/uL (152-348); RED BLOOD CELL COUNT(AUTO) 4.29 MIL/uL (4.06-5.63); WHITE BLOOD COUNT (AUTO) 5.3 K/uL (3.6-10.2)
[2018-01-16 18:17] LABS: POTASSIUM 4.2 mmol/L (3.5-5.1)
[2018-01-16 18:31] LABS: *BILIRUBIN,URIN NEGATIVE (NEGATIVE); *BLOOD, URINE NEGATIVE (NEGATIVE); *CLARITY,URINE CLEAR (CLEAR); *COLOR,URINE YELLOW (YELLOW); *KETONES,URINE NEGATIVE (NEGATIVE); *PROTEIN,URINE NEGATIVE (NEGATIVE); *UROBILINOGEN,URINE 0.2 E.U./dl (NORMAL); LEUKOCYTE ESTERASE ,URINE NEGATIVE (NEGATIVE); NITRITE, URINE NEGATIVE (NEGATIVE); UGLUCOSE NEGATIVE (NEGATIVE)
[2018-01-16 18:43] LABS: BACTERIA,URINE NONE SEEN /HPF (NONE SEEN); RBC,URINE 0-3 /HPF (0-3); SQUAMOUS EPITHELIAL CELL,UR FEW /HPF (NONE SEEN); WBC,URINE 0-3 /HPF (0-3)
--- NOTE | 2018-01-16 19:54 | NUR ---
CALLED [facility] ETA OF THE[facility]RICAL [facility]IETY AGENT IS 2114
--- NOTE | 2018-01-16 20:17 | NUR ---
CALLED [facility] AND LET THEM KNOW THAT PT WILL BE BROUGHT BACK TO THEIR FACILITY. DR WU AND DR. CASEY AWARE. WAITING FOR AMBULANCE TO ADMISSIONS RN PT
--- NOTE | 2018-01-16 21:07 | NUR ---
Patient discharged to home in stable conditon. Written and verbal after care instructions given. Patient verbalizes understanding of instructions. Ambulance 217 here to tow picker pt and bring back to [facility] facility. Pt denies any complaints at this time.
[2018-01-16 21:09] VITALS: BP 110/77
== END 2018-01-16 21:10 | disposition home or self-care (01) ==
LOC: ER 17:29
DX: Z00.00 Encounter for general adult medical examination without abnormal findings (principal); Z79.1 Long term (current) use of non-steroidal anti-inflammatories (NSAID); Z79.899 Other long term (current) drug therapy
CPT/HCPCS: 36415; 85025; 87086; A4663

== ENCOUNTER 2018-04-03 09:55 | Emergency (ER) | payer OTHER ==
[~2018-04-03] VITALS: Ht 175.3 cm; Wt 72.6 kg
--- NOTE | 2018-04-03 10:12 | NUR ---
PT IS IN ROOM #2B. DR DALE EVALUATED THE PT.
[2018-04-03] MEDS ORDERED: NEOMY/BACITRA/POLYMYXIN B OINT UD PACKET TP ONE ×2 (10:15→10:22)
[2018-04-03] MEDS ORDERED: TDAP DIPH,PERTUSS,TET VAC/PF 0.5 ML DISP.SYRIN IM ONE ×2 (10:15→10:21)
--- NOTE | 2018-04-03 10:40 | NUR ---
[facility] WAS CALLED ACCORDING TO DR DALE TO TRANSFER PT BACK TO [facility].
--- NOTE | 2018-04-03 10:41 | NUR ---
AMBULANCE JAMIR IS 20 MINUTES.
--- NOTE | 2018-04-03 10:46 | NUR ---
PT WAS D/C TO HIS NURSING FACILITY VIA [facility] AMBULANCE. D/C INSTRUCTIONS GIVEN TO THE PT , TO AMBULANCE TEAM, TO NURSING FACILITY.
[2018-04-03 10:48] VITALS: BP 136/78
== END 2018-04-03 10:50 | disposition home or self-care (01) ==
LOC: ER 09:58
DX: S09.90XA Unspecified injury of head, initial encounter (principal); Z79.1 Long term (current) use of non-steroidal anti-inflammatories (NSAID); Z79.899 Other long term (current) drug therapy; W01.198A Fall on same level from slipping, tripping and stumbling with subsequent striking against other object, initial encounter; Y93.89 Activity, other specified; Y92.89 Other specified places as the place of occurrence of the external cause; Y99.8 Other external cause status
CPT/HCPCS: 90715; 93005; A4663

== ENCOUNTER 2018-06-07 13:25 | Emergency (ER) | payer OTHER ==
[~2018-06-07] VITALS: Ht 177.8 cm; Wt 72.6 kg
--- NOTE | 2018-06-07 13:32 | NUR ---
Dr Kumar at the bedside for MSE.
--- NOTE | 2018-06-07 13:56 | NUR ---
TRIP NUMBER [id number] 30 MINUTES ETA
--- NOTE | 2018-06-07 14:21 | NUR ---
REPORT GIVEN AMBULANCE EMT NO 111. PATIENT DC BACK TO [facility].
[2018-06-07 14:27] VITALS: BP 108/74
== END 2018-06-07 14:33 | disposition home or self-care (01) ==
LOC: ER 13:25
DX: L40.9 Psoriasis, unspecified (principal)
CPT/HCPCS: 99282; A4663

== ENCOUNTER 2019-05-15 19:47 | Inpatient (IN) | payer MEDICARE, OTHER ==
[~2019-05-15] VITALS: Ht 180.3 cm; Wt 98.2 kg
[~2019-05-15 19:47] MED LIST changes: -SENN-167 PO; +SENN-168 PO
--- NOTE | 2019-05-15 20:02 | NUR ---
PATIENT BIB PRIVATE AMBULANCE FROM [facility] FOR RACE REDNESS AND GROIN PAIN. PATIENT IS A/O X1, DENIES CHEST PAIN OR SHORTNESS OF BREATH.
[2019-05-15] MEDS ORDERED: HALDOL IM (20:18)
[2019-05-15 20:54] LABS: BASOPHILS % (AUTO) 0.7 % (0.0-2.0); EOSINOPHILS % (AUTO) 6.6 % (0.0-7.0); HEMATOCRIT 37.6 % (36.7-47.1); HEMOGLOBIN 13.1 g/dL (12.5-16.3); LYMPHOCYTES % (AUTO) 29.6 % (20.5-51.5); MEAN CORPUSCULAR HEMOGLOBIN 29.3 uug (23.8-33.4); MEAN CORPUSCULAR HGB CONC 35 g/dL (32.5-36.3); MEAN CORPUSCULAR VOLUME 83.9 fL (73.0-96.2); MONOCYTES % (AUTO) 7.3 % (0.0-11.0); NEUTROPHILS % (AUTO) 55.8 % (38.5-71.5); PLATELET COUNT (AUTO) 134 K/uL (152-348); RED BLOOD CELL COUNT(AUTO) 4.48 MIL/uL (4.06-5.63); WHITE BLOOD COUNT (AUTO) 7.4 K/uL (3.6-10.2)
[2019-05-15 20:55] LABS: BASOPHILS # (AUTO) 0.1 K/uL (0.0-8.0); EOSINOPHILS # (AUTO) 0.5 K/uL (0.0-0.7); LYMPHOCYTES # (AUTO) 2.2 K/uL (20.0-40.0); MONOCYTES # (AUTO) 0.5 K/uL (2.0-10.0); NEUTROPHILS # (AUTO) 4.1 K/uL (1.8-8.9)
[2019-05-15 21:15] LABS: *BILIRUBIN,URIN NEGATIVE (NEGATIVE); *BLOOD, URINE NEGATIVE (NEGATIVE); *CLARITY,URINE CLEAR (CLEAR); *COLOR,URINE YELLOW (YELLOW); *KETONES,URINE NEGATIVE (NEGATIVE); *UROBILINOGEN,URINE 0.2 E.U./dl (NORMAL); LEUKOCYTE ESTERASE ,URINE NEGATIVE (NEGATIVE); NITRITE, URINE NEGATIVE (NEGATIVE); PH,URINE 5.5 (5.0-8.0); UGLUCOSE NEGATIVE (NEGATIVE)
[2019-05-15 21:17] LABS: BILIRUBIN,DIRECT 0.1 mg/dL (0.0-0.2); BILIRUBIN,TOTAL 0.4 mg/dL (0.2-1.0); TOTAL PROTEIN, SERUM 7.2 g/dL (6.4-8.2)
--- NOTE | 2019-05-15 21:59 | NUR ---
[facility] PAGED, DR SONI FOURDRINIER WIRE WEAVER.
--- NOTE | 2019-05-15 22:16 | NUR ---
DR. SONI PAGED AGAIN.
--- NOTE | 2019-05-15 22:17 | NUR ---
DR. HADLEY SPEAKING WITH DR. SONI AT THIS TIME.
--- NOTE | 2019-05-15 22:19 | NUR ---
PER DR. HADLEY, DR. SONI DOES NOT WANT TO ADMIT PATIENT AND FOR US TO CALL HOSPITALIST.
--- NOTE | 2019-05-15 22:21 | NUR ---
EPIC PAGED AT THIS TIME. DR ZIMMERMAN LITHOGRAPHIC PHOTOGRAPHER.
--- NOTE | 2019-05-15 22:23 | NUR ---
ADPt. admitted to TELE 318 , under care of Dr. ZIMMERMAN Belongs List completed.
--- NOTE | 2019-05-15 22:35 | NUR ---
DR. SONI CALLED BACK, ORDERS RECEIVED.
[2019-05-15 23:05] VITALS: BP 116/66
--- NOTE | 2019-05-15 23:05 | NUR ---
RECEIVED PATIENT VIA GURNEY FROM ER, PATIENT IS STABLE AND PLEASANT BUT CONFUSED , ALERT AND ORIENTED X 1 (TO PERSON). ORIENTED TO ROOM AND CALL LIGHT. PLACED BED IN LOWEST POSITION, LOCKED WITH SIDERAILS UP X 2. BED ALARM PLACED. BELONGINGS LIST CHECKED AND PUT IN CHART. COLLECTIONS REP WAS PLACED, VS STABLE. WILL CONTINUE TO MONITOR .
[2019-05-15] MEDS ORDERED: ACETAMINOPHEN 325 MG TABLET PO PRN (23:30)
[2019-05-15] MEDS ORDERED: IBUPROFEN 400 MG TABLET PO PRN (23:30)
[2019-05-16] MEDS ORDERED: SODIUM POLYSTYRENE SULF POWDER 15 GM UDC ONE (03:44)
[2019-05-16 05:19] VITALS: BP 111/66
--- NOTE | 2019-05-16 06:13 | NUR ---
Patient slept well throughout shift. No signs of acute distress noted. Patient is A/Ox1, confused with episodes of screaming out for his mother. Able to redirect patient. Heplock on the left forearm is intact and patent. Will endorse to next shift.
[2019-05-16] MEDS ORDERED: ACETAMINOPHEN 325 MG TABLET PO SCH (07:00)
[2019-05-16] MEDS ORDERED: IBUPROFEN 400 MG TABLET PO PRN (07:00)
[2019-05-16] MEDS ORDERED: HALOPERIDOL LACTATE 5 MG/1 ML VIAL IM PRN (07:00)
--- NOTE | 2019-05-16 07:40 | NUR ---
RECEIVED PT RESTING IN BED. PT ON TELEMETRY MONITORING. PT IS ON SINUS TACHYCARDIA AT THIS TIME. PT A+O X 1. HEPLOCK ON L FA 20 GAUGE INTACT AND PATENT. NO SIGNS OF SOB. NO SIGNS OF ACUTE DISTRESS NOTED AT THIS TIME. WILL CONTINUE TO MONITOR. WILL CONTINUE WITH PLAN OF CARE.
[2019-05-16] MEDS: FINASTERIDE 5 MG TABLET PO SCH (08:30)
[2019-05-16] MEDS: FOLIC ACID 1 MG TABLET PO SCH (08:31)
[2019-05-16] MEDS: THIAMINE HCL 100 MG TABLET PO SCH (08:31)
[2019-05-16] MEDS: LORAZEPAM 1 MG TABLET PO SCH ×3 (08:31→17:49)
[2019-05-16] MEDS: SENNOSIDES 1 TABLET PO SCH (08:31)
[2019-05-16] MEDS: risperiDONE 1 MG TABLET PO SCH ×2 (08:31→17:48)
[2019-05-16] MEDS ORDERED: LORAZEPAM 1 MG TABLET PO SCH (09:00)
[2019-05-16 11:04] VITALS: BP 112/78
--- NOTE | 2019-05-16 12:10 | NUR ---
PT RESTING COMFORTABLY IN ROOM. PT'S HR HIGH 90'S. AT TIMES TACHYCARDIA REACHES 150+ BPM. ATIVAN GIVEN. PT MEDICATION COMPLIANT. NO SOB OR ACUTE DISTRESS NOTED. WILL CONTINUE TO MONITOR.
[2019-05-16] MEDS ORDERED: METOPROLOL TARTRATE 25 MG TABLET PO SCH (13:15)
--- NOTE | 2019-05-16 13:15 | NUR ---
CONTACTED DR. SANFORD. ORDERED METOPROLOL Q6. PT PLACED ON 2 L/M O2 AT THIS TIME. PT IS ASYMPTOMATIC NO SOB OR ACUTE DISTRESS NOTED. PT DENIES ANY CHEST PAIN AT THIS TIME WELL IN PREVIOUS ASSESSMENTS.WILL CONTINUE TO MONITOR.
[2019-05-16 15:10] VITALS: BP 128/64
--- NOTE | 2019-05-16 18:00 | NUR ---
PT IS RESTING COMFORTABLY IN ROOM. PT SEEN BY DR SANFORD. PT HAS BEEN DC FROM TELEMETRY. NO SOB, PAIN OR ACUTE DISTRESS NOTED. PT IS MEDICATION COMPLIANT. WILL GIVE REPORT ACCORDINGLY.
--- NOTE | 2019-05-16 19:30 | NUR ---
Received patient in bed AAOx1 w/ confusion. No SOB, denies pain at this time. Patient noted ambulatory. L FA heplock intact and patent. Safety measures observed. Call light within reach
[2019-05-16 20:00] VITALS: BP 125/84
[2019-05-16] MEDS: METOPROLOL TARTRATE 25 MG TABLET PO SCH (20:37)
[2019-05-16] MEDS ORDERED: TAMSULOSIN HCL 0.4 MG CAP.SR.24H PO SCH (21:00)
[2019-05-17 05:00] VITALS: BP 123/65
--- NOTE | 2019-05-17 06:39 | NUR ---
Patient slept intermittently. Denies any pain at this time. No SOB noted. All needs attended. Will endorse accordingly.
--- NOTE | 2019-05-17 07:41 | NUR ---
RECEIVED PT IN BED RESTING COMFORTABLY. NO SIGNS OF PAIN, SOB OR ACUTE DISTRESS NOTED. CALL LIGHT WITHIN REACH. BOARD UPDATED. BED LOW. WILL CONTINUE TO MONITOR. WILL CONTINUE WITH PLAN OF CARE.
[2019-05-17] MEDS ORDERED: FAMO-132 PO (07:54)
[2019-05-17] MEDS ORDERED: METO25TA6 PO (07:57)
[2019-05-17] MEDS: METOPROLOL TARTRATE 25 MG TABLET PO SCH (09:00)
[2019-05-17] MEDS: risperiDONE 1 MG TABLET PO SCH (09:19)
[2019-05-17] MEDS: THIAMINE HCL 100 MG TABLET PO SCH (09:19)
[2019-05-17] MEDS: LORAZEPAM 1 MG TABLET PO SCH ×2 (09:19→12:45)
[2019-05-17] MEDS: SENNOSIDES 1 TABLET PO SCH (09:22)
[2019-05-17] MEDS: FINASTERIDE 5 MG TABLET PO SCH (09:22)
[2019-05-17] MEDS: FOLIC ACID 1 MG TABLET PO SCH (09:22)
[2019-05-17 11:51] VITALS: BP 103/61
--- NOTE | 2019-05-17 12:00 | NUR ---
PT IS RESTING COMFORTABLY IN BED. PT IS MEDICATION COMPLIANT. NO SIGNS OF SOB OR ACUTE DISTRESS. PT DENIES PAIN AT THIS TIME. DISCHARGE ORDERS RECEIVED. WILL CONTINUE TO MONITOR PATIENT UNTIL TIME OF DISCHARGE.
--- NOTE | 2019-05-17 14:20 | NUR ---
PT DISCHARGED TO [facility]. PT LEFT VIA WHEELCHAIR ACCOMPANIED BY [facility] STAFF (HEAVEN). IV DC'D REMOVED CATHETER INTACT. NO SOB OR ACUTE DISTRESS NOTED. BELONGINGS RETURNED. INSTRUCTION FOLDER GIVEN TO [facility] STAFF.
== END 2019-05-17 14:20 | DRG 882 ==
LOC: ER 19:47 → TELE3 22:46 → MEDSURG3 05-16 18:16
PROVIDERS: ADMIT Internal Medicine Nephrology; ATTEND Internal Medicine
DX: F45.41 Pain disorder exclusively related to psychological factors (principal); F41.9 Anxiety disorder, unspecified; N50.819 Testicular pain, unspecified; R07.89 Other chest pain; F20.9 Schizophrenia, unspecified; I49.3 Ventricular premature depolarization; F17.210 Nicotine dependence, cigarettes, uncomplicated; Z86.73 Personal history of transient ischemic attack (TIA), and cerebral infarction without residual deficits; R00.0 Tachycardia, unspecified
CPT/HCPCS: 36415; 70030-TC; 71046; 76870; 85025; 87086; 93005; 93307; A4663; G0378